=== PATIENT | male | born 1980 | race American Indian/Alaskan Native ===

== ENCOUNTER 2016-07-21 12:10 | Emergency (ER) | payer MEDICARE, MEDICAID ==
[2016-07-21 12:10] VITALS: BMI 29.4
[2016-07-21 12:31] VITALS: RESP 16; TEMP 98.4; O2SAT 98
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
[2016-07-21 13:46] VITALS: BP 120/84; PULSE 80
--- NOTE | 2016-07-21 14:30 | RAD ---
PROCEDURE: Radiographs of the Left Shoulder HISTORY: Shoulder pain COMPARISON: No prior. FINDINGS: BONES: Bone alignment and mineralization are normal. There is no acute fracture or bone destruction. JOINTS: Glenohumeral and acromioclavicular joints preserved. No osteoarthritis. SOFT TISSUES: Normal. OTHER FINDINGS: None. IMPRESSION: Normal examination.
== END 2016-07-21 13:46 | disposition home or self-care (01) ==
LOC: ED 12:10
DX: M25.512 Pain in left shoulder (principal); Z87.891 Personal history of nicotine dependence

== ENCOUNTER 2016-09-28 14:11 | Emergency (ER) | payer MEDICARE, MEDICAID ==
[2016-09-28 14:28] VITALS: TEMP 98.6; BMI 28.5
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
--- NOTE | 2016-09-28 15:50 | RAD ---
HISTORY: cough x 11 days, neck pain COMPARISON: 08/02/2015 TECHNIQUE: Chest PA and lateral FINDINGS: LUNGS: No active pulmonary disease. PLEURA: No significant pleural effusion identified. No pneumothorax apparent. CARDIOVASCULAR: Normal. OSSEOUS STRUCTURES: No significant abnormalities. VISUALIZED UPPER ABDOMEN: Normal. OTHER FINDINGS: None. IMPRESSION: No active disease.
[2016-09-28 16:40] VITALS: BP 122/76; PULSE 80; RESP 18; O2SAT 98
== END 2016-09-28 16:41 | disposition home or self-care (01) ==
LOC: ED 14:11
DX: R05 Cough (principal); M54.2 Cervicalgia
CPT/HCPCS: 71020; 96372; 99282; J1885